=== PATIENT | male | born 1960 | race Caucasian/White ===

== ENCOUNTER 2018-04-30 09:52 | Inpatient (IN) ==
[2018-04-30] MEDS ORDERED: *HR* Ticagrelor 90 MG TABLET PO ONE (09:56)
[2018-04-30] MEDS ORDERED: *HR* Heparin 5,000 UNIT/ML VIAL ONE (09:56)
[2018-04-30] MEDS ORDERED: *HR* Ticagrelor 90 MG TABLET ONE (09:56)
[2018-04-30] MEDS ORDERED: Aspirin 81 MG TAB.CHEW ONE (09:56)
[2018-04-30] MEDS ORDERED: *HR* Heparin 5,000 UNIT/ML VIAL IVP ONE (09:57)
--- NOTE | 2018-04-30 10:00 | Emergency Department Note ---
Disposition Clinical Impression: Acute myocardial infarction Qualifiers: Myocardial infarction type: ST elevation myocardial infarction Involved coronary artery: unspecified coronary artery Qualified Code(s): I21.3 - ST elevation (STEMI) myocardial infarction of unspecified site Disposition: Admitted As Inpatient Condition: Fair Forms: ED Satisfaction Letter General Adult HPI - General Chief complaint: ED Weakness Stated complaint: weakness, diaphoretic Time Seen by Provider: 04/30/18 09:55 Nursing Notes Reviewed: Yes Vital Signs Reviewed: Yes - Related Data Allergies Allergy/AdvReac Type Severity Reaction Status Date / Time No Known Allergies Allergy Verified 04/30/18 09:56 Critical Care Time Critical Care Time: Yes Total Critical Care Time: 15 Attestation: Excluding any separately billable procedures Attestation Statement - Attestation Attestation: This documentation is done with the assistance of Dragon dictation. Despite efforts made to ensure accuracy, there may be inaccuracies in gse mechanic or spelling and typographical errors. I examined this patient and my medical decision-making was reviewed with the Resident Physician. I agree with the documented findings, disposition and treatment plan as described except to the extent set forth below. Patient seen and evaluated on arrival with EMS and Dr. Boswell, I agree with her evaluation and management plan, supervise care the patient stay. Patient woke this morning just not feeling well lobe more than an hour before he got here no chest pain. Had an VT in his early 40s. And states that he would did not feel like his pain that he had previously. No pain today little short of breath no nauseous. Patient denies any fevers or chills. Denies abdominal pain or back pain at this time patient has EMS who sent the EKG test but was uninterpretable because cut off leads 12 and 3. However here were looking 30 [address] segment elevation inferiorly leads and her EKG also. We notified [facility] diaschisis turbulent and heparin orders are placed patient has no pain at this time and then he will go to [facility]. Patient's in agreement with this plan.
--- NOTE | 2018-04-30 10:16 | Emergency Department Note ---
Disposition Clinical Impression: Acute myocardial infarction Qualifiers: Myocardial infarction type: ST elevation myocardial infarction Involved coronary artery: unspecified coronary artery Qualified Code(s): I21.3 - ST elevation (STEMI) myocardial infarction of unspecified site Disposition: Admitted As Inpatient Condition: Fair Referrals: NONE,PCP [Primary Care Provider] - Time of Disposition: 11:47 General Adult HPI - General Chief complaint: ED Weakness Stated complaint: weakness, diaphoretic Time Seen by Provider: 04/30/18 09:55 Source: EMS Limitations: no limitations Nursing Notes Reviewed: Yes Vital Signs Reviewed: Yes - History of Present Illness HPI Narrative: Earlier this morning patient got very diaphoretic sitting outside. This was at rest. He moved to the shade and was still feeling bad." No shortness of breath no chest pain. EMS was called found to have ST elevations in leads 2, 3 , aVF. Does have a history of STEMI. Pain Scale: 0 - Related Data Home Medications Medication Instructions Recorded Confirmed Aspirin [Lo-Dose Aspirin EC] 81 mg PO DAILY 04/30/18 04/30/18 Atorvastatin [Lipitor] 40 mg PO HS 04/30/18 04/30/18 Carvedilol 12.5 mg PO BID 04/30/18 04/30/18 Clopidogrel [Plavix] 75 mg PO DAILY 04/30/18 04/30/18 Etodolac [Lodine] 400 mg PO BID 04/30/18 04/30/18 HYDROcodone/Acet 5/325 mg [[place] 1 tab PO Q6H PRN 04/30/18 04/30/18 5-325 mg] Lisinopril [Zestril] 10 mg PO DAILY 04/30/18 04/30/18 Multivit-Min/FA/Lycopen/Lutein [A 1 tab PO DAILY 04/30/18 04/30/18 Thru Z Select Multivit Tab] Potassium Gluconate [Potassium] 99 mg PO DAILY 04/30/18 04/30/18 hydroCHLOROthiazide 12.5 mg PO DAILY 04/30/18 04/30/18 [Hydrochlorothiazide] Allergies Allergy/AdvReac Type Severity Reaction Status Date / Time No Known Allergies Allergy Verified 04/30/18 09:56 All systems ED: reviewed and negative except as stated. Constitutional: Denies: fever, chills ENT ED: Denies: congestion Cardiovascular: Denies: chest pain, palpitations, syncope Respiratory: Reports: dyspnea (Patient reports occasionally). Denies: cough Gastrointestinal: Denies: abdominal pain, nausea, vomiting, diarrhea, hematemesis, melena, hematochezia Genitourinary: Denies: urgency, dysuria, frequency Musculoskeletal: Denies: back pain, neck pain Integumentary: Denies: rash, abrasion, lesions Neurological: Denies: headache, weakness, numbness Past Medical History - Past Medical History Attestation: Yes The following information was validated with the patient. Source: patient Medical history: Reports: coronary artery disease, hypertension, myocardial infarction Psychiatric history: Reports: no psych history - Social History Smoking Status: Current every day smoker Alcohol use: Reports: none Drug use: Reports: none Physical Exam - General Limitations: no limitations General appearance: alert, in no apparent distress - Head Head exam: atraumatic, normocephalic, normal inspection - Eye Eye exam: Present: normal appearance, PERRL, EOMI. Absent: scleral icterus - ENT ENT exam: normal exam, normal oropharynx, mucous membranes moist - Neck Neck exam: Present: normal inspection, full ROM, trachea midline. Absent: tenderness - Chest Chest inspection: Present: normal inspection, symmetric chest wall rise. Absent : tenderness - Respiratory Respiratory exam: Present: normal lung sounds bilaterally. Absent: respiratory distress, accessory muscle use - Cardiovascular Cardiovascular exam: Present: regular rate, normal rhythm, normal heart sounds - Abdominal Exam Abdominal exam: Present: soft, Non-Tender. Absent: tenderness, distention, guarding, rebound, rigidity, organomegaly - Extremities Exam Extremities exam: Present: normal inspection, full ROM, normal capillary refill. Absent: tenderness, pedal edema - Back Exam Back exam: Present: normal inspection, full ROM. Absent: tenderness - Neurological Exam Neurological exam: Present: alert, oriented X3 - Psychiatric Psychiatric exam: Present: normal affect, normal mood - Skin Skin exam: Present: warm, dry, intact, normal color Course Course Narrative: Male patient presenting to the emergency department after an episode of diaphoresis and not feeling well today. Patient does have a history of an PR with stent placement greater than 10 years ago. He states that he is not having any chest pain however he was sitting outside resting today whenever he felt very odd. He states that he got very sweaty and did not feel well. He states he went to the shade to see if that made him feel better and he did not. States that at that time he was even too scared to get up because he did not feel well. He called 911. EMS did a 12-lead and found the patient have ST elevations in leads 2,3 and aVF. They gave the patient aspirin and brought him to the emergency department. Patient is resting comfortably at this time and has no real complaints. Lung sounds are clear heart tones are normal. Abdomen is soft and nontender. STEMI alert was activated. I walks the EKG over to the [facility] and they state they will take the patient immediately after the patient is currently on the table. We did provide patient with Brilinta and heparin. Our EKG also showed elevations in leads 2, 3, and aVF. We will facilitate patient going to the [facility] and admission to the hospital. Vital Signs Temperature 97.4 F L 04/30/18 09:56 Pulse Rate 68 04/30/18 09:56 Respiratory Rate 13 04/30/18 09:56 Blood Pressure 118/73 04/30/18 09:56 O2 Sat by Pulse Oximetry 93 04/30/18 09:56 Temperature 97.4 F L 04/30/18 09:56 Pulse Rate 66 04/30/18 10:15 Respiratory Rate 18 04/30/18 10:44 Blood Pressure 115/80 04/30/18 10:44 O2 Sat by Pulse Oximetry 93 04/30/18 09:56 Medical Decision Making - Medical Records Medical records reviewed: Yes I reviewed the patient's medical records. - Lab Data Lab results reviewed: Yes I reviewed the patient's lab results. Result diagrams: 04/30/18 09:56 04/30/18 09:56 Lab Results 04/30/18 04/30/18 04/30/18 Range/Units 09:56 09:56 09:56 WBC 8.8 (4.3-11.1) K/mcL RBC 4.97 (4.19-5.50) M/mcL Hgb 14.7 (12.9-16.9) g/dL Hct 43.3 (37.5-50.1) % MCV 87.1 (83.0-100.0) fL MCH 29.6 (28.0-33.3) pg MCHC 33.9 (31.6-35.5) g/dL RDW 13.3 (11.5-14.5) % Plt Count 173 (140-400) K/mcL MPV 12.1 (9.4-12.4) fL Immature Gran % 0.6 (0-4) % Seg Neutrophils % 73.2 % Lymphocytes % 15.3 % Monocytes % 7.3 % Eosinophils % 3.3 % Basophils % 0.3 % Neutrophils # 6.4 (1.6-8.9) K/mcL Lymphocytes # 1.3 (0.6-4.6) K/mcL Monocytes # 0.6 (0.0-1.3) K/mcL Eosinophils # 0.3 (0.0-0.6) K/mcL Basophils # 0.0 (0.0-0.2) K/mcL PT 10.0 (9.4-12.1) Seconds INR 0.9 APTT 29.3 (26.0-36.0) Seconds Sodium 136 (136-145) mEq/L Potassium 4.2 (3.5-5.1) mEq/L Chloride 101 (98-107) mEq/L Carbon Dioxide 29 (23-29) mEq/L BUN 24 H (6-20) mg/dL Creatinine 0.95 (0.70-1.30) mg/dL Est GFR ( Amer) > 60 (> 60) Est GFR (Non-Af Amer) > 60 (> 60) BUN/Creatinine Ratio 25 (6-26) Glucose 135 H (70-105) mg/dL Calculated Osmolality 288 (280-300) Calcium 9.0 (8.6-10.3) mg/dL Magnesium 1.8 (1.6-2.6) mg/dL Troponin I < 0.03 (< 0.04) ng/mL - EKG Data EKG #1 EKG attestation: Yes I reviewed and interpreted this EKG. EKG results narrative: Normal sinus rhythm at a rate of 64. OR interval is 186. QRS duration is 95. QT is 373. QTC is 383. Patient does have around 1 mm of elevations in leads 23 and aVF. Patient also has some flattened T waves in leads aVL compared to previous EKG dated 08/23/2016. He also has some morphology and axis changes in leads V4 V5 and V6. We did have a [facility] EKG that shows around 2 mm of elevations in leads 23 and aVF. There is also some or cervical changes in leads aVR and aVL. This is timed at 9:27 AM.
--- NOTE | 2018-04-30 10:32 | Cardiology Consult Note ---
<Yasmine Rojas - Last Filed: 04/30/18 10:29> Date of Encounter: 04/30/18 Time of Encounter: 10:10 Assessment and Plan (1) Unstable angina Current Visit: Yes Status: Acute Per cardiology: -Reports shortness of breath and diaphoresis. -Denies chest pain. Previous angina with chest pain. -ECG with ST elevation in leads III, aVF. ECGs reviewed with and -does not meet STEMI criteria. -Known history of CAD. S/p SD and PCI 13 years ago. -Discussed and reviewed with , recommend heparin drip. -With symptoms and ECG changes, plan for LHC. Risks versus benefits of LHC explained to patient. Patient states understanding and agrees with plan. -Further recommendations pending LHC. (2) Tobacco abuse Current Visit: Yes Status: Chronic Per cardiology: -Known tobacco abuse. -States has been smoking since age 15, approximately 3 ppd. -States currently vapes. -Smoking/tobacco cessation education provided to patient. Discussion w patient/family: The assessment and plan as outlined above was discussed with the patient who expressed understanding and agreement. All questions were answered. Thank you for involving us in the care of your patient. Please call with any questions. Discussed and reviewed with and . History of Present Illness Consult date: 04/30/18 Requesting physician: Lakia Boswell Consult reason: ECG changes Chief complaint: shortness of breath, diaphoresis History of present illness: Mr. Lozada is a 57 year old male with a relevant past medical history of CAD s/ o SD 13 years ago, HTN, HLD, significant tobacco abuse who presented to [facility] with complaints of diaphoresis and shortness of breath. Patient states symptoms started while out in the sun today. Denies aggravating or alleviating factors. Denies current symptoms. Denies chest pain. Past Med Surg Social Fam HX - Past Medical History Attestation: Yes The following information was validated with the patient. Source: patient, old records reviewed Medical history: coronary artery disease, hypertension, myocardial infarction Psychiatric history: no psych history - Past Surgical History Additional surgical history: brain surgery - Social History Smoking Status: Current every day smoker Alcohol use: none Drug use: none Medications and Allergies Aspirin [Lo-Dose Aspirin EC] 81 mg PO DAILY 04/30/18 [History] Atorvastatin [Lipitor] 40 mg PO HS 04/30/18 [History] Carvedilol 12.5 mg PO BID 04/30/18 [History] Clopidogrel [Plavix] 75 mg PO DAILY 04/30/18 [History] Etodolac [Lodine] 400 mg PO BID 04/30/18 [History] HYDROcodone/Acet 5/325 mg [[place] 5-325 mg] 1 tab PO Q6H PRN 04/30/18 [History] Lisinopril [Zestril] 10 mg PO DAILY 04/30/18 [History] Multivit-Min/FA/Lycopen/Lutein [A Thru Z Select Multivit Tab] 1 tab PO DAILY [History] Potassium Gluconate [Potassium] 99 mg PO DAILY 04/30/18 [History] hydroCHLOROthiazide [Hydrochlorothiazide] 12.5 mg PO DAILY 04/30/18 [History] 3 Allergy/AdvReac Type Severity Reaction Status Date / Time No Known Allergies Allergy Verified 04/30/18 09:56 All Systems Review: The remainder of the systems were reviewed and are negative - Cardiovascular Cardiovascular: as per HPI, diaphoresis, dyspnea at rest Physical Examination Vital Signs, Last 4 Hours Pulse Resp BP 04/30/18 10:15 66 15 131/73 General: Conversant, No Apparent Distress HEENT: Atraumatic, Normocephaly, Mucus Membranes Moist Neck: No JVD, Normal carotid pulses Cardiac: Reg Rate and Rhythm, Normal S1 and S2, No Murmur Lungs: Normal Breath Sounds, No Wheeze, Rales, Rhonchi Neuro: Alert and responsive, No focal deficits noted Abdomen: Soft, Non-Tender Skin: No rashes noted on visualized skin Musculoskeletal: No Chest Wall Tenderness Extremities: No Clubbing, No Cyanosis, No Edema, Normal Pulses Results - EKG Interpretation EKG results cardiology: personally reviewed (ECG with SR, HR 64, ST elevations noted in leads III, aVF.) Consult Discharge Plan - Plan Referrals: NONE,PCP [Non-Partnered Physician] - <Jose Cartagena - Last Filed: 04/30/18 12:43> Date of Encounter: 04/30/18 - Attending Attestation I have personally performed a face to face evaluation on this patient. I have reviewed and agree with the care plan. History and Exam by me shows: 57 YOM presents with CP, unstable angina s/p PCI of the mid LAD Continue medical management F/U with cardiology as an OP Not STEMI, will admit to Medicine, discussed with hospitalist group and accepted Assessment and Plan Discussion w patient/family: The assessment and plan as outlined above was discussed with the patient and/or family members who expressed understanding and agreement. All questions were answered. Thank you for involving us in the care of your patient. Please call with any questions. History of Present Illness History of present illness: Mr. Lozada is a 57 year old male All Systems Review: The remainder of the systems were reviewed and are negative Physical Examination Vital Signs, Last 4 Hours Pulse Resp BP 04/30/18 10:44 18 115/80 04/30/18 10:15 66 15 131/73 Results 04/30/18 09:56 04/30/18 09:56
[2018-04-30] MEDS ORDERED: Nitroglycerin 1,000 MCG/10 ML VIAL IV ONE (10:34)
[2018-04-30] MEDS ORDERED: Heparin 1,000 UNITS/500 mL 500 ML ONE ×2 (10:34→11:43)
[2018-04-30] MEDS ORDERED: ISOVUE-370 200 ML INFUS..BTL IV ONE ×2 (10:34→11:43)
[2018-04-30] MEDS ORDERED: *HR* Heparin 10,000 UNIT/10 ML VIAL ONE ×2 (10:34→11:36)
[2018-04-30] MEDS ORDERED: 0.9 % Sodium Chloride 2,000 ML ONE (10:34)
[2018-04-30] MEDS ORDERED: *HR* Midazolam HCl 2 MG/2 ML VIAL ONE ×2 (10:43→11:06)
[2018-04-30 10:55] LABS: Basophils % 0.3 %; Eosinophils # 0.3 K/mcL (0.0-0.6); Eosinophils % 3.3 %; Hematocrit 43.3 % (37.5-50.1); Hemoglobin 14.7 g/dL (12.9-16.9); Immature Granulocytes % 0.6 % (0-4); Lymphocytes # 1.3 K/mcL (0.6-4.6); Lymphocytes % 15.3 %; Mean Corpuscular HGB Conc 33.9 g/dL (31.6-35.5); Mean Corpuscular Hemoglobin 29.6 pg (28.0-33.3); Mean Corpuscular Volume 87.1 fL (83.0-100.0); Mean Platelet Volume 12.1 fL (9.4-12.4); Monocytes # 0.6 K/mcL (0.0-1.3); Monocytes % 7.3 %; Neutrophils # 6.4 K/mcL (1.6-8.9); Platelet Count 173 K/mcL (140-400); Red Blood Count 4.97 M/mcL (4.19-5.50); Red Cell Distribution Width 13.3 % (11.5-14.5); Segmented Neutrophils % 73.2 %
[2018-04-30 11:05] LABS: INR 0.9
[2018-04-30 11:07] LABS: Activated Partial Thrombo Time 29.3 Seconds (26.0-36.0)
[2018-04-30 11:18] LABS: BUN/Creatinine Ratio 25 (6-26); Blood Urea Nitrogen 24 mg/dL (6-20); Carbon Dioxide 29 mEq/L (23-29); Chloride 101 mEq/L (98-107); Glucose 135 mg/dL (70-105); Magnesium 1.8 mg/dL (1.6-2.6); Osmolality,Calculated 288 (280-300); Potassium 4.2 mEq/L (3.5-5.1); Sodium 136 mEq/L (136-145); Troponin I < 0.03 ng/mL (< 0.04); eGFR For African Americans > 60 (> 60); eGFR For Non-African Americans > 60 (> 60)
[2018-04-30] MEDS ORDERED: 0.9 % Sodium Chloride 1,000 ML ONE (11:36)
[2018-04-30] MEDS ORDERED: *HR* Midazolam HCl 5 MG/5 ML VIAL IVP ONE (11:58)
--- NOTE | 2018-04-30 13:55 | Invasive Diagnostic Lab Proc ---
Name: Koffi Lozada Date of Study: 04/30/2018 Date: 1960 Ht: 70.9in Medical Record#: [id number] Age: 57 Wt: 272.93lb Gender: Male BSA: 2.4 Order #: [id number] BMI: 38.21 Physicians Procedure Physician: Carson Sanches DO Referring MD: Referring MD: Staff Name Position Time In HelenAvelina arrieta RN Monitor 10:52 AM Tatiana Tyson RN Nurse 10:52 AM Stefania May RT (R) Scrub 10:52 AM La Kulkarni RN Neurosurgery Physician 10:52 AM Farnaz Thomas RN Neurosurgery Physician 10:52 AM Lelo Aguilar RT (R) Monitor 11:58 AM Omari Colindres RN Neurosurgery Physician 11:58 AM Indications Indication Unstable Angina Procedures Performed Procedure L HRT ARTERY/VENTRICLE ANGIO PRQ CARD ÁNGELA STENT W/ANGIO 1 VSL Pre-Procedure Checklist Informed consent is complete signed and on chart. H&P is on chart. ID band is on and ID verified with patient. Patient NPO for procedure The procedure was described for the patient and questions were answered. Blood Pressure: 131/73 ECG is on chart. Rhythm: NSR Plan of Care Patient will tolerate the procedure without complications. Adequate level of comfort will be maintained. Hemodynamics will remain stable Patient will recover from procedure without complications. Respiratory function will be maintained. Cardiac rhythm will remain stable. Patient temperature will be maintained. Patient and/or family have verbalized understanding of the procedure. Patient Education Intravenous Access Time IV Size Location DC'd Fluid/Drip Rate Units RN 10:46 AM 18g 1 1/4" Patent On Arrival Lt Antecubital 10:46 AM 18g 1 1/4" Patent On Arrival Rt Antecubital Allergies No Known Allergies NKA Vital Signs Time BP (mmHg) HR (bpm) O2 Sat. RR (bpm) LOC 10:46 AM 131 / 73 66 93 % 15 5 = Fully awake and oriented or at pre-proc level 11:00 AM / % 5 = Fully awake and oriented or at pre-proc level 11:00 AM / % 5 = Fully awake and oriented or at pre-proc level 11:15 AM / % 5 = Fully awake and oriented or at pre-proc level 10:57 AM 115 / 78 63 98 % 11:02 AM 120 / 71 67 99 % 11:07 AM 95 / 67 75 97 % 11:13 AM 100 / 61 77 96 % 11:17 AM 106 / 64 72 95 % 11:22 AM 78 97 % 11:27 AM 106 / 60 76 97 % 11:32 AM 101 78 96 % 11:37 AM 106 / 61 76 98 % 11:42 AM 73 98 % 11:51 AM 109 / 64 97 % 11:56 AM 74 98 % 12:02 PM 105 65 96 % 12:06 PM 69 97 % 12:11 PM / 70 98 % 12:16 PM / 69 95 % 12:21 PM / 74 96 % 12:26 PM 66 100 % 10:52 AM 123 / 77 62 99 % 12:48 PM 113 / 102 62 99 % 16 4 = Oriented but drowsy 01:01 PM 110 / 75 62 96 % 16 5 = Fully awake and oriented or at pre-proc level 01:16 PM 108 / 63 96 % 16 4 = Oriented but drowsy 01:33 PM 111 / 73 60 96 % 16 4 = Oriented but drowsy 01:47 PM 102 / 66 58 96 % 16 4 = Oriented but drowsy Procedural Medications Time Medication Dose Units Method Given By 10:54 AM Oxygen 2 L/min nasal cannula Farnaz Thomas RN 11:02 AM Versed 2 mg Intravenous Farnaz Thomas RN 11:06 AM Lidocaine 2% 10 ml Subcutaneous Carson Sanches DO 11:07 AM Versed 1 mg Intravenous Farnaz Thomas RN 11:20 AM Heparin 3000 units Intravenous Farnaz Thomas RN 11:21 AM Versed 1 mg Intravenous Farnaz Thomas RN 11:34 AM Heparin 2000 units Intravenous Farnaz Thomas RN 11:59 AM Versed 1 mg Intravenous VinaythOmari macias RN 11:59 AM Benadryl 50 mcg Intravenous Omari Colindres RN 12:05 PM Heparin 3000 units Intravenous Omari Colindres RN 12:12 PM Nitroglycerin 100 mcg Intracoronary Carson Sanches DO Ji Score Preprocedure Postprocedure Activity Activity Circulation Circulation Consciousness Consciousness O2 Saturation O2 Saturation Respiratory Respiratory Total Score Total Score Contrast Agent: Isovue Diagnostic Contrast: 100 ml Total Contrast: 100 ml Fluoro Dose: 817 mGy Activated Clotting Time Time Seconds to Clot 11:17 AM 167 11:33 AM 209 12:06 PM 204 12:25 PM 224 Procedure Log Time Note Enter By 10:42 AM CathStat 10:48 AM 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 pain 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 scoates 10:48 AM Pt arrived to slabber 2 at 10:48 scoates 10:52 AM Vitals capture started with the following parameters, Patient=Adult, Interval=5 min, Initial [place]=741 mmHg, Deflation Rate=5 mmHg, Cuff placed on Right Arm 10:52 AM Avelina Sunshine RN Position: Monitor Time in: 10:52 scoates 10:52 AM Tatiana Tyson RN Position: Nurse Time in: 10:52 scoates 10:52 AM HR=62 bpm, IFQM=238/77 mmhg, SpO2=99.0 %, Comment=nsr 10:52 AM Stefania May RT (R) Position: Scrub Time in: 10:52 scoates 10:52 AM La Kulkarni RN Position: Neurosurgery Physician Time in: 10:52 scoates 10:52 AM Farnaz Thomas RN Position: Neurosurgery Physician Time in: 10:52 scoates 10:52 AM Patient charges- Angio tray pack, Navilyst 3mm J, Pulse Oximetry and ACIST tubing and transducer scoates 10:52 AM Case Delayed No scoates 10:53 AM Hair removed from procedure site in procedure lab using clippers. Bilateral groin prepped with Chloraprep by Stefania May RT (R), then patient was draped. Skin intact. scoates 10:54 AM Physican paged/called 10:54. scoates 10:54 AM Time: 10:54 Oxygen on at 2 L/min per nasal cannula by Farnaz Thomas RN scoates 10:56 AM Physician arrived 10:56 scoates 10:57 AM HR=63 bpm, RZOZ=965/78 mmhg, SpO2=98.0 % 10:59 AM Recorded ECG: HR=63 Condition=Condition 1 11:00 AM Time: 11:00 Patient comfortable and pain free: Yes scoates 11:00 AM Time: 11:00LOC: 5 = Fully awake and oriented or at pre-proc level scoates 11:00 AM Clinical Presentation: Unstable angina scoates 11:02 AM Pressure channel 2 zeroed. 11:02 AM HR=67 bpm, AXDN=140/71 mmhg, SpO2=99.0 % 11:02 AM Pressure channel 2 zeroed. 11:03 AM Time: 11:02 Versed 2 mg Intravenous Given by Farnaz Thomas RN scoates 11:05 AM Time out performed according to hospital policy scoates 11:06 AM Time: 11:06 10 ml Lidocaine 2% to right groin Subcutaneous Given by Carson Sanches, scoates 11: AM Time: 11:07 Versed 1 mg Intravenous Given by Farnaz Thomas RN scoates 11:07 AM HR=75 bpm, NIBP=95/67 mmhg, SpO2=97.0 % 11:11 AM Unsuccessful access attempt # 1 into the right Femoral artery. Manual pressure applied to achieve hemostasis.. scoates 11:12 AM Micro-Introducer Kit utilized for sheath placement scoates 11:13 AM HR=77 bpm, CFXW=153/61 mmhg, SpO2=96.0 % 11:13 AM Access obtained by percutaneous puncture. 6Fr 10cm Terumo [place] sheath placed in right Femoral artery. [id number] scoates 11:13 AM 0.035 145cm Navilyst 3mmJ wire [id number] scoates 11:13 AM 6Fr FL 4 catheter inserted over the wire DNC scoates 11:14 AM ACT being drawn scoates 11:14 AM wire removed. scoates 11:15 AM Time: 11:00 Patient comfortable and pain free: Yes scoates 11:15 AM Time: 11:00LOC: 5 = Fully awake and oriented or at pre-proc level scoates 11:16 AM Recorded Pressure: Ao, HR=76, Condition=Condition 1 (Aorta) Ao 84/58/69 11:16 AM LCA angiography performed in multiple views. scoates 11:17 AM Catheter removed scoates 11:17 AM HR=72 bpm, JJFH=826/64 mmhg, SpO2=95.0 % 11:17 AM At 11:17 the ACT was 167 seconds. scoates 11:18 AM 6Fr JR 4 [place] Bright-Tip guide catheter was used to cannulate the PCI vessel successfully. reused? No scoates 11:18 AM Recorded Pressure: LV, HR=78, Condition=Condition 1 (Left Ventricle) LV 70/6/16 11:18 AM Recorded Pressure: LV, Ao, HR=73, Condition=Condition 1 (Left Ventricle) LV 131/7/12, (Aorta) Ao 101/66/82 11:19 AM Recorded Pressure: Ao, HR=64, Condition=Condition 1 (Aorta) Ao 86/51/64 11:19 AM Catheter selectively placed in left ventricle scoates 11:19 AM Bolus angiogram of left Ventricle complete: hand injection scoates 11:19 AM catheter repositioned to RCA scoates 11:19 AM RCA angiography performed in multiple views. scoates 11:20 AM Guide catheter removed intact. scoates 11:20 AM 6Fr JL4 [place] Bright-Tip guide catheter was used to cannulate the PCI vessel successfully. reused? No scoates 11:20 AM Time: 11:20 Heparin 3000 units Intravenous Given by Farnaz Thomas RN scoates 11: AM Time: 11:21 Versed 1 mg Intravenous Given by Farnaz Thomas RN scoates 11: AM Guide catheter removed intact. scoates 11:22 AM HR=78 bpm, RHTZ=227/67 mmhg, SpO2=97.0 %, Comment=NSR 11:22 AM 6Fr XB LAD 3.5 [place] Bright-Tip guide catheter was used to cannulate the PCI vessel successfully. reused? No scoates 11:26 AM Guide catheter removed intact. scoates 11:26 AM Inflation device was opened. scoates 11:26 AM 6Fr XB4.0 [place] Bright-Tip guide catheter was used to cannulate the PCI vessel successfully. reused? No scoates 11:27 AM HR=76 bpm, BCYY=621/60 mmhg, SpO2=97.0 %, Comment=NSR 11:27 AM Guide catheter removed intact. scoates 11:28 AM 6Fr JL5 [place] guide catheter was used to cannulate the PCI vessel successfully. reused? No scoates 11:30 AM Recorded Pressure: Ao, HR=71, Condition=Condition 1 (Aorta) Ao 90/58/72 11:30 AM Time: 11:15LOC: 5 = Fully awake and oriented or at pre-proc level scoates 11:30 AM Time: 11:15 Patient comfortable and pain free: Yes scoates 11:30 AM 500cc bolus of 0.9 NS adminsitered per La Kulkarni RN scoates 11:31 AM .014 ChoICE PT Extra Support 300cm guide wire across target lesion- successful. reused? No scoates 11:32 AM HR=78 bpm, NQVW=553/67 mmhg, SpO2=96.0 %, Comment=NSR 11:34 AM At 11:33 the ACT was 209 seconds. scoates 11:34 AM Time: 11:34 Heparin 2000 units Intravenous Given by Farnaz Thomas RN scoates 11:35 AM Coronary Dominance: right scoates 11:37 AM HR=76 bpm, JMWQ=655/61 mmhg, SpO2=98.0 %, Comment=NSR 11:37 AM Guide wire removed intact. scoates 11:37 AM XRAY machine malfunction at this time. C-ARM being reset scoates 11:39 AM Guide catheter removed intact. scoates 11:40 AM Pt being transferred to lab 1 due to XRAY equipment failure. scoates 11:42 AM HR=73 bpm, YZGY=342/68 mmhg, SpO2=98.0 % 11:51 AM Vitals capture started with the following parameters, Patient=Adult, Interval=5 min, Initial Mevhmjdi=947 mmHg, Deflation Rate=3 mmHg, Cuff placed on Right Arm 11:51 AM HR=64 bpm, JMXH=378/68 mmhg, SpO2=97.0 % 11:52 AM Pressure channel 1 zeroed. 11:56 AM HR=74 bpm, OVWE=590/68 mmhg, SpO2=98.0 % 11:58 AM Lelo Aguilar RT (R) Position: Monitor Time in: 11:58 to relieve Avelina Sunshine RN 11:59 AM Omari Colindres RN Position: Neurosurgery Physician Time in: 11:58 to relieve La Kulkarni RN 11:59 AM Time: 11:59 Versed 1 mg Intravenous Given by Omari Colindres RN 11:59 AM Time: 11:59 benadryll 50 mcg Intravenous Given by Omari Colindres RN 12:01 PM Guidecatheter re-inserted. [email or web address] 12:01 PM .014 Choice Extra Support 300cm guide wire across target lesion- successful. reused? No [facility] 12:02 PM LCA angiography performed in multiple views. [facility] 12:02 PM HR=65 bpm, DBAR=515/71 mmhg, SpO2=96.0 %, Comment=NSR 12:05 PM 2.0 mm x 15 mm Emerge Monorail balloon across target lesion- successful. reused? No [facility] 12:06 PM Time: 12:05 Heparin 3000 units Intravenous Given by Omari Colindres RN [facility] 12:06 PM HR=69 bpm, HKRZ=703/66 mmhg, SpO2=97.0 %, Comment=NSR 12:07 PM Balloon inflated @ 12 carlyn for 17 seconds [facility] 12:07 PM Balloon inflated @ 12 carlyn for 20 seconds [facility] 12:07 PM Balloon catheter removed intact. [facility] 12:09 PM 2.5mm x 24mm Synergy drug-eluting stent across target lesion- successful Lot #[id number] [facility] 12:11 PM Stent deployed @ 12 carlyn for 15 seconds [facility] 12:11 PM Stent delivery system removed intact. [facility] 12:11 PM HR=70 bpm, GKRN=269/71 mmhg, SpO2=98.0 %, Comment=NSR 12:12 PM Time: 12:12 Nitroglycerin 100 mcg Intracoronary Given by Carson Sanches DO [facility] 12:13 PM Recorded Pressure: Ao, HR=74, Condition=Condition 1 (Aorta) Ao 96/62/77 12:13 PM Recorded Pressure: Ao, HR=74, Condition=Condition 1 (Aorta) Ao 100/69/83 12:13 PM Guide wire removed intact. [facility] 12:14 PM Guidewire re-inserted. [facility] 12:16 PM HR=69 bpm, MLEQ=420/70 mmhg, SpO2=95.0 %, Comment=NSR 12:17 PM Guide wire removed intact. [facility] 12:18 PM Guide catheter removed intact. [facility] 12:19 PM Bolus angiogram of right Femoral complete: 4 ml/sec for a total of 7 mls [facility] 12:21 PM HR=74 bpm, JJPB=729/66 mmhg, SpO2=96.0 %, Comment=NSR 12:26 PM Procedure completed at 12:26 tsoummers 12:26 PM HR=66 bpm, HJLF=200/68 mmhg, NfL6=080.0 %, Comment=NSR 12:27 PM Did you address EVELIO flow and Dominance? Yes tsoummers 12:27 PM Sign out completed: Radiation Dose 817.09 mGy Fluoro Time: 5.9 Isovue 370 - 200ml contrast 100 ml given by Carson Sanches DO. Complications: NoneCardiac Rehab Consult needed: YesConfirmed administered medications: No tsoummers 12:27 PM Isovue 370 - 200ml,1 Bottle(s) used. tsoummers 12:27 PM Sheath left in place to be pulled on floor/holding areaV+Pad tsoummers 12:27 PM Estimated Blood Loss: minimal tsoummers 12:27 PM Post ECG NSR tsoummers 12:27 PM Post Blood Pressure 107/68 tsoummers 12:35 PM Report given to Sharmila JONES Pt taken to ICU Room #8. 12:34 tsoummers 12:40 PM Bed management working on getting 2N bed so patient going to Holding room. tsoummers 01:10 PM report called to KAREN Muhammad on 2N, room is still being cleaned scoates 01:43 PM Karyna from Cardiac Rehab in to educate patient mprater 01:47 PM Patient transfered to mprater Complications Complication None Hemodynamics Pressures Site Systolic/A Wave Diastolic/V Wave Mean AO 86 51 64 AO 90 58 72 AO 96 62 77 AO 100 69 83 AO 84 58 69 LV 70 6 16 LV 131 7 12 AO 101 66 82 Post Procedure Information Blood Pressure: 107/68 mmHg Rhythm: NSR Post procedural instructions were given Site Checks Time Location Status Staff Sheath In? Note 12:20 PM Rt Groin No bleeding/ No Hematoma Stefania May RT (R) 12:47 PM Rt Groin No bleeding/ No Hematoma Walter Cotton RT (R) Yes sheath intact 01:03 PM Rt Groin No bleeding/ No Hematoma La Kulkarni RN Yes sheath is intact 01:15 PM Rt Groin No bleeding/ No Hematoma uEgenia De Paz RN Yes 01:33 PM Rt Groin No bleeding/ No Hematoma Eugenia De Paz RN Yes 01:45 PM Rt Groin No bleeding/ No Hematoma Eugenia De Paz RN Yes Pulses Time Site Pre-Procedure Post-Procedure Note 04/30/2018 10:46:00 AM Bilateral DP & PT 2+ 2+ 04/30/2018 12:50:00 PM Bilateral DP & PT 2+ 04/30/2018 1:33:00 PM Bilateral DP & PT 2+ Updated by Eugenia De Paz RN on 04/30/2018 1:49:55 PM Eugenia De Paz RN electronically signed on 04/30/2018 1:50:26 PM with status of Final
[2018-04-30] MEDS ORDERED: *HR* Atropine Sulfate 1 MG/10 ML SYRINGE ONE (14:44)
[2018-04-30] MEDS ORDERED: Naloxone 0.4 MG/ML INJ IVP PRN (15:23)
--- NOTE | 2018-04-30 15:28 | Internal Med History&Physical ---
Date of Encounter: 04/30/18 Time of Encounter: 15:25 Internal Medicine - H&P: HPI Chief complaint: Diaphoresis, dizziness History of present illness: Mr. Lozada is a 57 year old male history of CAD status post a heart attack at age 44 status post stent, hypertension, hyperlipidemia on dual antiplatelet therapy who presents with unstable angina. He reports sudden onset of diaphoresis associated with dizziness, being unsteady on his feet at approximately 8:15 this morning while sitting in a chair. Denies any overt chest pain or shortness of breath but he did mention that due to his symptoms he was concentrating on his breathing. Evaluation in the ER he was given heparin, loaded with brilinta, aspirin and had cardiology evaluation. There was some initial concerns for an ST elevation CA but on cardiology evaluation and assessment of EKG changes and symptoms, it was thought to be more consistent with unstable angina. EKG personally reviewed with rate 64, mild [address] elevation in V3 and V4 Past Med Surg Social Fam HX - Past Medical History Medical history: coronary artery disease, hypertension, myocardial infarction Psychiatric history: no psych history - Past Surgical History Additional surgical history: brain surgery - Social History Smoking Status: Current every day smoker Smokeless Tobacco Status: No Alcohol use: none Drug use: none Internal Medicine - H&P: Meds Aspirin [Lo-Dose Aspirin EC] 81 mg PO DAILY 04/30/18 [History] Atorvastatin [Lipitor] 40 mg PO HS 04/30/18 [History] Carvedilol 12.5 mg PO BID 04/30/18 [History] Clopidogrel [Plavix] 75 mg PO DAILY 04/30/18 [History] Etodolac [Lodine] 400 mg PO BID 04/30/18 [History] HYDROcodone/Acet 5/325 mg [[place] 5-325 mg] 1 tab PO Q6H PRN 04/30/18 [History] Lisinopril [Zestril] 10 mg PO DAILY 04/30/18 [History] Multivit-Min/FA/Lycopen/Lutein [A Thru Z Select Multivit Tab] 1 tab PO DAILY [History] Potassium Gluconate [Potassium] 99 mg PO DAILY 04/30/18 [History] hydroCHLOROthiazide [Hydrochlorothiazide] 12.5 mg PO DAILY 04/30/18 [History] 3 Allergy/AdvReac Type Severity Reaction Status Date / Time No Known Allergies Allergy Verified 04/30/18 09:56 All Systems PM: A 10-system review of systems was performed and is negative for pertinent findings except as documented above in the HPI. Review of systems: ROS 14 point review of systems reviewed as best as possible given presentation. Pertinent positive or negative as per HPI or otherwise reviewed as negative - Constitutional Vitals: Temp Pulse Resp BP Pulse Ox 97.9 F 65 16 115/62 96 04/30/18 14:04 04/30/18 15:17 04/30/18 14:04 04/30/18 15:15 04/30/18 14:04 Exam: General - AAO x 3 Psych - Appropriate affect/speech. No agitation Eyes - SYLVIA. Eye lids intact. No scleral icterus Heart - Sinus. RRR. S1 and S2 present. No added HS/murmurs appreciated. No elevated JVD appreciated. Lung - Adequate air entry b/l, No crackles/wheezes appreciated GI - Soft, non-tender. No hepatosplenomegaly/ascites. BS+ - No CVA/suprapubic tenderness or palpable bladder distension Skin - Intact. No rash/petechiae/ecchymosis. Warm extremities Internal Med - H&P Results - Labs CBC & Chem 7: 04/30/18 09:56 04/30/18 09:56 - Assessment and plan (1) Unstable angina Current Visit: Yes Status: Acute Assessment and plan: s/p eval by card, felt UA, consented for PCI s/p stenting - reported LAD ?? continue DAPT (2) CAD (coronary artery disease) Current Visit: Yes Status: Acute Assessment and plan: s/p stent age 44 (approx 13 years ago) Qualifiers: Coronary Disease-Associated Artery/Lesion type: [place] artery Associated angina: with unstable angina Qualified Code(s): I25.110 - Atherosclerotic heart disease of [place] coronary artery with unstable angina pectoris (3) HTN (hypertension) Current Visit: Yes Status: Acute Assessment and plan: continue cardiac med d/c HCTZ and replace with imdur Qualifiers: Hypertension type: essential hypertension Qualified Code(s): I10 - Essential (primary) hypertension (4) HLD (hyperlipidemia) Current Visit: Yes Status: Acute Assessment and plan: statin Qualifiers: Hyperlipidemia type: mixed hyperlipidemia Qualified Code(s): E78.2 - Mixed hyperlipidemia - Time Spent With Patient Total time spent is greater than 50% in coordination of care (as documented) at patient's floor/unit and/or counseling patient:
[2018-04-30] MEDS: 0.9 % Sodium Chloride 1,000 ML IVC SCH (15:29)
[2018-04-30] MEDS: *HR* HYDROcodone/Acet 5/325 mg TABLET PO PRN ×2 (15:36→22:05)
[2018-05-01] MEDS: 0.9 % Sodium Chloride 1,000 ML IVC SCH (00:42)
[2018-05-01 04:15] LABS: Basophils % 0.2 %; Eosinophils # 0.2 K/mcL (0.0-0.6); Eosinophils % 2.8 %; Immature Granulocytes % 0.4 % (0-4); Lymphocytes # 1.7 K/mcL (0.6-4.6); Lymphocytes % 19.7 %; Mean Corpuscular HGB Conc 34.2 g/dL (31.6-35.5); Mean Corpuscular Hemoglobin 28.8 pg (28.0-33.3); Mean Corpuscular Volume 84.1 fL (83.0-100.0); Mean Platelet Volume 11.6 fL (9.4-12.4); Monocytes # 0.8 K/mcL (0.0-1.3); Monocytes % 9.2 %; Neutrophils # 5.8 K/mcL (1.6-8.9); Platelet Count 150 K/mcL (140-400); Red Blood Count 4.52 M/mcL (4.19-5.50); Red Cell Distribution Width 13.3 % (11.5-14.5); Segmented Neutrophils % 67.7 %
[2018-05-01 04:32] LABS: BUN/Creatinine Ratio 18 (6-26); Blood Urea Nitrogen 16 mg/dL (6-20); Calcium 8.5 mg/dL (8.6-10.3); Carbon Dioxide 27 mEq/L (23-29); Chloride 103 mEq/L (98-107); Glucose 108 mg/dL (70-105); Osmolality,Calculated 288 (280-300); Potassium 3.8 mEq/L (3.5-5.1); Sodium 138 mEq/L (136-145); eGFR For African Americans > 60 (> 60); eGFR For Non-African Americans > 60 (> 60)
[2018-05-01] MEDS ORDERED: *HR* Enoxaparin 40 MG/0.4 ML SYRINGE SQ SCH (06:00)
[2018-05-01] MEDS ORDERED: Perflutren Lipid Microsphere 1.3 ML in 0.9 % Sodium Chloride 8.7 ML IVP ONE (07:11)
--- NOTE | 2018-05-01 08:29 | Cardiology Progress Note ---
Date of Encounter: 05/01/18 Time of Encounter: 08:26 Assessment and Plan (1) CAD (coronary artery disease) Current Visit: Yes Status: Acute Presented with shortness of breath and diaphoresis. Symptoms now resolved. ECG with ST elevation in leads III, aVF. ECGs reviewed with and -does not meet STEMI criteria. Symptoms were concerning for unstable angina, underwent LHC yesterday with ÁNGELA to mLAD. Final report pending. DAPT (ASA and Plavix) uninterrupted x 1 year. Pt verbalizes understanding. Continue BB, Statin, ACEi. Right femoral access site healing well. No bleeding, hematoma or ecchymosis noted. Restrictions discussed. TTE pending. Cardiology signing off. Reconsult PRN or for abnormal echo findings. Will coordinate outpt follow-up in 3-4 weeks. Qualifiers: Coronary Disease-Associated Artery/Lesion type: [place] artery Associated angina: with unstable angina Qualified Code(s): I25.110 - Atherosclerotic heart disease of [place] coronary artery with unstable angina pectoris (2) Tobacco abuse Current Visit: Yes Status: Chronic Smoking since age 15, approximately 3 ppd. States currently vapes. Smoking/ tobacco cessation education provided to patient. Discussion w patient/family: The assessment and plan as outlined above was discussed with the patient and/or family members who expressed understanding and agreement. All questions were answered. Thank you for involving us in the care of your patient. Please call with any questions. I will discuss all the above with Dr. Cartagena and make changes as necessary. Subjective Principal diagnosis: CAD Interval history: S/P LHC yesterday for unstable angina. Received ÁNGELA to mLAD. Final report pending. TTE pending. 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 pain or dyspnea this AM. No acute complaints. Objective Vital Signs, Last 4 Hours Temp Pulse Resp BP Pulse Ox 05/01/18 07:08 98.1 F 74 18 112/75 94 05/01/18 05:08 97.9 F 83 17 120/74 95 Vital Signs Temp Pulse Pulse Resp BP Pulse Ox 05/01/18 07:08 98.1 F 74 18 112/75 94 05/01/18 05:08 97.9 F 83 17 120/74 95 05/01/18 00:44 98 F 72 17 111/75 94 04/30/18 22:00 77 04/30/18 20:31 98 F 66 17 109/68 94 04/30/18 18:49 70 114/66 04/30/18 18:00 68 110/59 04/30/18 17:10 71 116/61 04/30/18 16:30 82 123/77 04/30/18 16:29 61 99/65 04/30/18 16:21 98.3 F 67 18 99/65 94 04/30/18 16:05 60 114/67 04/30/18 15:48 62 112/66 04/30/18 15:25 65 113/65 04/30/18 15:20 68 99/66 04/30/18 15:17 64 65 04/30/18 15:15 65 65 115/62 04/30/18 15:10 60 60 103/69 04/30/18 15:05 64 64 95/68 04/30/18 15:00 61 61 104/70 04/30/18 14:57 65 65 112/72 04/30/18 14:45 69 69 108/69 04/30/18 14:30 62 62 110/69 04/30/18 14:15 67 67 121/70 04/30/18 14:04 97.9 F 63 16 114/68 96 04/30/18 14:00 63 63 110/69 04/30/18 10:44 18 115/80 04/30/18 10:15 66 15 131/73 04/30/18 10:10 63 126/79 04/30/18 09:56 97.4 F L 68 13 118/73 93 Intake and Output 04/30/18 05/01/18 05/01/18 23:59 07:59 15:59 Output Total 650 / 650 1525 / 1525 Balance -650 / -650 -1525 / -1525 Output: Urine 650 / 650 1525 / 1525 Other: Weight 123.3 kg Patient Weight 05/01/18 23:59 Weight 123.3 kg General: Conversant, No Apparent Distress HEENT: Atraumatic, Normocephaly, Mucus Membranes Moist Neck: No JVD, Normal carotid pulses Cardiac: Reg Rate and Rhythm, Normal S1 and S2, No Murmur Lungs: Normal Breath Sounds, No Wheeze, Rales, Rhonchi Neuro: Alert and responsive, No focal deficits noted Abdomen: Soft, Non-Tender Skin: Other (right femoral access site healing well. No bleeding, hematoma or ecchymosis noted.) Musculoskeletal: No Chest Wall Tenderness Extremities: No Clubbing, No Cyanosis, No Edema, Normal Pulses Results 05/01/18 03:56 05/01/18 03:56 Lab Results 05/01/18 05/01/18 03:56 03:56 WBC 8.5 Hgb 13.0 D Hct 38.0 Plt Count 150 Sodium 138 Potassium 3.8 Chloride 103 Carbon Dioxide 27 BUN 16 Creatinine 0.88 Glucose 108 H Calcium 8.5 L Short CBC 05/01/18 04/30/18 Range/Units 03:56 09:56 WBC 8.5 8.8 (4.3-11.1) K/mcL Hgb 13.0 D 14.7 (12.9-16.9) g/dL Hct 38.0 43.3 (37.5-50.1) % Plt Count 150 173 (140-400) K/mcL Neutrophils # 5.8 6.4 (1.6-8.9) K/mcL BMP 05/01/18 04/30/18 Range/Units 03:56 09:56 Sodium 138 136 (136-145) mEq/L Potassium 3.8 4.2 (3.5-5.1) mEq/L Chloride 103 101 (98-107) mEq/L Carbon Dioxide 27 29 (23-29) mEq/L BUN 16 24 H (6-20) mg/dL Creatinine 0.88 0.95 (0.70-1.30) mg/dL Glucose 108 H 135 H (70-105) mg/dL Calcium 8.5 L 9.0 (8.6-10.3) mg/dL Cardiac Enzymes 04/30/18 Range/Units 09:56 Troponin I < 0.03 (< 0.04) ng/mL Active Medications Hydrocodone Bitart/Acetaminophen ([place] 5-325 Mg) 1 tab PO Q6H PRN PRN Reason: Pain Stop: 10/30/18 14:02 Last Admin: 04/30/18 22:05 Dose: 1 tab Aspirin (Aspirin Ec) 81 mg PO DAILY TOMMY Stop: 10/31/18 09:01 Atorvastatin Calcium (Lipitor) 40 mg PO HS TOMMY Stop: 12/15/18 21:01 Last Admin: 04/30/18 22:05 Dose: 40 mg Carvedilol (Coreg) 12.5 mg PO BID [facility] Stop: 10/30/18 21:01 Last Admin: 04/30/18 22:05 Dose: 12.5 mg Clopidogrel Bisulfate (Plavix) 75 mg PO DAILY [facility] Stop: 10/31/18 09:01 Diclofenac Sodium (Voltaren) 50 mg PO TID TOMMY Stop: 10/30/18 21:01 Last Admin: 04/30/18 22:05 Dose: 50 mg Enoxaparin Sodium (Lovenox) 40 mg SQ 0600 [facility] PRN Reason: Protocol Stop: 10/31/18 06:01 Last Admin: 05/01/18 05:14 Dose: 40 mg Sodium Chloride (0.9 % Sodium Chloride) 1,000 mls @ 100 mls/hr IVC .Q10H [facility] Stop: 10/30/18 13:01 Last Admin: 05/01/18 00:42 Dose: 100 mls/hr Isosorbide Mononitrate (Imdur) 30 mg PO DAILY [facility] Stop: 10/31/18 09:01 Lisinopril (Zestril) 10 mg PO DAILY [facility] PRN Reason: Protocol Stop: 10/31/18 09:01 Multivitamins/Calcium (Thera M Plus) 1 tab PO DAILY [facility] Stop: 10/31/18 09:01 Naloxone HCl (Narcan) 0.4 mg IVP Q2MIN PRN PRN Reason: SEE COMMENTS Stop: 10/30/18 15:24 Potassium Chloride (Potassium Chloride) 10 meq PO DAILY [facility] Stop: 10/31/18 09:01 - Imaging and Cardiology Echo: pending Cardiac cath: report reviewed - EKG Interpretation EKG results cardiology: other (12 hr tele AVG HR 66, SR. No significant pauses or arrhythmias noted.) Consult Discharge Plan - Plan Additional Instructions: RISK FACTORS: STOP SMOKING: If you smoke, STOP. Smoking or tobacco use significantly increases your risk of heart disease because nicotine causes the arteries to narrow or constrict. It also causes fats to stick to the artery. Your chances of having a heart attack are greatly increased if you continue to smoke. For more information, call the education line for smoking cessation 7-563-LPFDAXC EAT A LOW FAT/CHOLESTEROL/SODIUM DIET: This diet may help reduce your chances of having a heart attack. LIFTING: Avoid lifting anything more than 10 pounds for 5-7 days Prior to straining, laughing, sneezing and/or coughing, apply manual pressure directly over insertion site. ACTIVITY: You may walk or climb stairs as tolerated You can resume sexual activity as tolerated In general, you are encouraged to engage in a minimum of 30 minutes or more of moderate intensity physical activity, such as brisk walking, daily or at least 3 -4 times weekly BATHING Do not submerge the site into water (bath tub, hot tub, swimming pool) for 1 week. This can be a source for infection into the blood stream. You may shower after 24 hours SITE CARE: After 24 hours, you may remove the dressing and leave the site open to air. Keep the site clean and dry. Clean gently and pat dry. You can expect bruising and tenderness that gradually resolve within a week or two. Return to work as instructed per your physician Resume driving as instructed per physician Keep all scheduled follow up appointments Resume medications as instructed IMPORTANT: If prescribed a Platelet Aggregation Inhibitor such as, Plavix, Brilinta or Effient: Duration of therapy is minimum one year These medications are often used in combination with Aspirin in prevention of future heart attacks Never discontinue unless consult with your Catalog Librarian STROKE (CVA) Risk factors for a stroke are: Age, cigarette smoking, diabetes, excessive alcohol consumption, family history, high blood pressure, overweight, physical inactivity, prior stroke, heart attack, diagnosis of carotid artery stenosis or other artery disease. Warning signs: Sudden numbness or weakness of the face, arm or leg; especially on one side of the body, sudden confusion, trouble speaking or understanding, sudden trouble seeing in one or both eyes, sudden trouble walking, dizziness, loss of balance or coordination, sudden severe headache with no cause. Call 911 or go to the Emergency Room. CONGESTIVE HEART FAILURE: If you have been diagnosed with Congestive Heart Failure (CHF) and your symptoms return, make an appointment with your physician Weigh yourself daily. Notify your physician if you have a weight gain of two or more pounds in one day or five or more pounds in one week. If you experience any difficulty breathing, please call 911 BLEEDING: Although the risk of bleeding is minimal, it can happen. If you have any bleeding from the site, apply firm pressure above the puncture site for 10-15 minutes. If the bleeding does not stop, continue manual pressure and call 911 Contact your physician if: You develop a fever greater than 101 degrees Fahrenheit Your site becomes reddened or has any drainage You have an increase in pain or burning at the site or if a large knot forms at the site. If you experience chest pain, shortness of breath, dizziness, or extreme tiredness, stop the activity and rest. Please notify your physicians office if you experience any of these symptoms and they are not relieved by rest please call 911! Referrals: Lyndsay Pineda, GOGO [Advanced Practice Nurse] - 05/11/18 9:30 am Jose Cartagena [Partnered Physician] - (Office will call patient at home with follow up appointment)
[2018-05-01] MEDS ORDERED: hydroCHLOROthiazide 25 MG TABLET PO SCH (09:00)
[2018-05-01] MEDS ORDERED: Aspirin Enteric Coated 81 MG Tablet PO SCH (09:00)
[2018-05-01] MEDS ORDERED: Isosorbide MONOnitrate (24 HR) 30 MG TAB.ER.24H PO SCH (09:00)
[2018-05-01] MEDS ORDERED: Multivit/Ca/Min/Fe/FA 1 TAB TABLET PO SCH (09:00)
[2018-05-01 11:05] VITALS: BP 104/68
--- NOTE | 2018-05-01 11:47 | Discharge Summary ---
- NOTES TO OUTPATIENT PROVIDER Notes to Outpatient Provider: Patient hospitalized with unstable angina. Underwent left heart catheterization and had stent placed to mid LAD. Stable for discharge from cardiac standpoint. He will follow up with cardiology after discharge. Orders not resulted at time of discharge: Pending orders 04/30/18 12:52 ECG 12 lead ECG [ECG] Stat 05/01/18 07:00 ECG 12 lead ECG [ECG] Routine Date of Encounter: 05/01/18 Time of Encounter: 11:45 - Discharge Diagnosis (1) Unstable angina Priority: Primary Status: Acute (2) HTN (hypertension) Priority: Secondary Status: Acute Qualifiers: Hypertension type: essential hypertension Qualified Code(s): I10 - Essential (primary) hypertension (3) HLD (hyperlipidemia) Priority: Secondary Status: Acute Qualifiers: Hyperlipidemia type: mixed hyperlipidemia Qualified Code(s): E78.2 - Mixed hyperlipidemia (4) CAD (coronary artery disease) Priority: Secondary Status: Acute Qualifiers: Coronary Disease-Associated Artery/Lesion type: [place] artery [place] vs. transplanted heart: [place] heart Associated angina: with unstable angina Qualified Code(s): I25.110 - Atherosclerotic heart disease of [place] coronary artery with unstable angina pectoris Hospital course: Mr. Lozada is a 57 year old male Patient with history of coronary artery disease and prior stents was hospitalized with unstable angina. He was evaluated by cardiology and then Underwent left heart catheterization and had a drug-eluting stent placed to mid LAD. He is clinically stable for discharge from a cardiac standpoint. A 2-D echocardiogram showed moderate LV dysfunction. Normal ejection fraction. He will be discharged on dual antiplatelet therapy and statin. Patient has been on dual antiplatelet therapy since his prior stent. He will follow up with cardiology for further management. Discharge discussed with: patient, nurse - Time Spent with Patient Total time spent providing and/or coordinating discharge services: Less than 30 minutes (25 min) - Discharge Medications Prescriptions: Isosorbide MONOnitrate (24 HR) [Imdur] 30 mg PO DAILY #30 tab.er.24h Home Medications: Aspirin [Lo-Dose Aspirin EC] 81 mg PO DAILY 04/30/18 [History] Atorvastatin [Lipitor] 40 mg PO HS 04/30/18 [History] Carvedilol 12.5 mg PO BID 04/30/18 [History] Clopidogrel [Plavix] 75 mg PO DAILY 04/30/18 [History] Etodolac [Lodine] 400 mg PO BID 04/30/18 [History] HYDROcodone/Acet 5/325 mg [[place] 5-325 mg] 1 tab PO Q6H PRN 04/30/18 [History] Lisinopril [Zestril] 10 mg PO DAILY 04/30/18 [History] Multivit-Min/FA/Lycopen/Lutein [A Thru [employer] Multivit Tab] 1 tab PO DAILY [History] Potassium Gluconate [Potassium] 99 mg PO DAILY 04/30/18 [History] hydroCHLOROthiazide [Hydrochlorothiazide] 12.5 mg PO DAILY 04/30/18 [History] Isosorbide MONOnitrate (24 HR) [Imdur] 30 mg PO DAILY #30 tab.er.24h 05/01/18 [ Rx] Allergies/Adverse Reactions: 3 Allergy/AdvReac Type Severity Reaction Status Date / Time No Known Allergies Allergy Verified 04/30/18 09:56 Date of admission: 04/30/18 10:14 Primary care physician: Gustavo Lim Consults: 04/30/18 12:52 Consult to Cardiac Rehabilitation-Phase1 [CONS] Routine Comment: Reason for Consult: AMI Call Completed: Yes Consult to Nurse Navigator [CONS] Routine Comment: 04/30/18 14:00 Consult to Hospitalist [CONS] Routine Consulting Provider: Hospitalist [place] Reason for Consult: Transfer service, was not a STEMI. Call Completed: Yes Discharging clinician: Janak Salas Anticipated date of discharge: 05/01/18 - Constitutional Vitals: Temp Pulse Resp BP Pulse Ox 98.1 F 69 18 104/68 68 05/01/18 11:04 05/01/18 11:24 05/01/18 11:04 05/01/18 11:04 05/01/18 11:04 General appearance: Present: cooperative, A&O X 3, answers questions appropriately - Respiratory Respiratory exam: Present: CTAB. Absent: accessory muscle use, rales, rhonchi, wheezes - Cardiovascular Cardiovascular exam: Present: RRR, +S1, +S2. Absent: diastolic murmur, gallop, rubs, systolic murmur - GI/Abdominal GI/Abdominal exam: Present: normal bowel sounds, soft, no peritoneal signs. Absent: distended, tenderness - Extremities Exam Extremities exam: Present: warm, radial pulses palpable and symmetrical. Absent : calf tenderness, cyanotic, pedal edema - Patient Status Disposition: Home, Self-Care Condition: Good Functional capacity at discharge: independent ambulation Overall status at discharge: patient is progressing back to baseline - Discharge Instructions Instructions: Myocardial Infarction (DC), Chest Pain (DC), Chronic Hypertension (DC) Follow Up With: Lyndsay Pineda CNP [Advanced Practice Nurse] - 05/11/18 9:30 am Jose Cartagena [Partnered Physician] - (Office will call patient at home with follow up appointment) Additional Instructions: RISK FACTORS: STOP SMOKING: If you smoke, STOP. Smoking or tobacco use significantly increases your risk of heart disease because nicotine causes the arteries to narrow or constrict. It also causes fats to stick to the artery. Your chances of having a heart attack are greatly increased if you continue to smoke. For more information, call the education line for smoking cessation 1-994-VOIOYZK EAT A LOW FAT/CHOLESTEROL/SODIUM DIET: This diet may help reduce your chances of having a heart attack. LIFTING: Avoid lifting anything more than 10 pounds for 5-7 days Prior to straining, laughing, sneezing and/or coughing, apply manual pressure directly over insertion site. ACTIVITY: You may walk or climb stairs as tolerated You can resume sexual activity as tolerated In general, you are encouraged to engage in a minimum of 30 minutes or more of moderate intensity physical activity, such as brisk walking, daily or at least 3 -4 times weekly BATHING Do not submerge the site into water (bath tub, hot tub, swimming pool) for 1 week. This can be a source for infection into the blood stream. You may shower after 24 hours SITE CARE: After 24 hours, you may remove the dressing and leave the site open to air. Keep the site clean and dry. Clean gently and pat dry. You can expect bruising and tenderness that gradually resolve within a week or two. Return to work as instructed per your physician Resume driving as instructed per physician Keep all scheduled follow up appointments Resume medications as instructed IMPORTANT: If prescribed a Platelet Aggregation Inhibitor such as, Plavix, Brilinta or Effient: Duration of therapy is minimum one year These medications are often used in combination with Aspirin in prevention of future heart attacks Never discontinue unless consult with your Taper Machine STROKE (CVA) Risk factors for a stroke are: Age, cigarette smoking, diabetes, excessive alcohol consumption, family history, high blood pressure, overweight, physical inactivity, prior stroke, heart attack, diagnosis of carotid artery stenosis or other artery disease. Warning signs: Sudden numbness or weakness of the face, arm or leg; especially on one side of the body, sudden confusion, trouble speaking or understanding, sudden trouble seeing in one or both eyes, sudden trouble walking, dizziness, loss of balance or coordination, sudden severe headache with no cause. Call 911 or go to the Emergency Room. CONGESTIVE HEART FAILURE: If you have been diagnosed with Congestive Heart Failure (CHF) and your symptoms return, make an appointment with your physician Weigh yourself daily. Notify your physician if you have a weight gain of two or more pounds in one day or five or more pounds in one week. If you experience any difficulty breathing, please call 911 BLEEDING: Although the risk of bleeding is minimal, it can happen. If you have any bleeding from the site, apply firm pressure above the puncture site for 10-15 minutes. If the bleeding does not stop, continue manual pressure and call 911 Contact your physician if: You develop a fever greater than 101 degrees Fahrenheit Your site becomes reddened or has any drainage You have an increase in pain or burning at the site or if a large knot forms at the site. If you experience chest pain, shortness of breath, dizziness, or extreme tiredness, stop the activity and rest. Please notify your physicians office if you experience any of these symptoms and they are not relieved by rest please call 911! - Diet and Activity Activity: increase activity as tolerated Diet: low fat, low cholesterol, low salt diet
--- NOTE | 2018-05-03 09:07 | Electrocardiograph Report ---
[address] [place], [place] [address] Test Date: 2018-04-30 Pat Name: Koffi Lozada Department: 104 Room: 2N02 Gender: M Water Main Inspector: AM : 1960 Requested By: Steve Toro Order Number: [id number] Reading MD: Neal Trejo Measurements Intervals [place] Rate: 64 P: 56 [place]: 186 QRS: 60 QRSD: 95 T: 62 QT: 373 QTc: 383 Interpretive Statements SINUS RHYTHM ANTEROSEPTAL MYOCARDIAL INFARCTION, OF INDETERMINATE AGE ST ELEVATION, CONSIDER INFERIOR INJURY (SEEN ON PREVIOUS EKG) Electronically Signed On 05-03-2018 9:06:14 EDT by Neal Trejo
--- NOTE | 2018-05-03 09:11 | Electrocardiograph Report ---
[address] [address] Test Date: 2018-04-30 Pat Name: Koffi Lozada Department: 110 Room: 2N02 Gender: M Top Cleaner: WENDIE : 1960 Requested By: Carson Sanches Order Number: [id number] Reading MD: Neal Trejo Measurements Intervals [place] Rate: 59 P: 36 IA: 169 QRS: 69 QRSD: 110 T: 53 QT: 401 QTc: 401 Interpretive Statements SINUS BRADYCARDIA BASELINE ARTIFACT Electronically Signed On 05-03-2018 9:09:58 EDT by Neal Trejo
== END 2018-05-01 13:16 | disposition home or self-care (01) | DRG 247 ==
LOC: EMEROO 09:52 → ICNU 10:14 → 2NNU 12:59
PROVIDERS: ADMIT Internal Medicine Cardiovascular Disease; ATTEND Family Medicine